=== PATIENT | female | born 1990 | race Caucasian/White ===

== ENCOUNTER 2018-01-14 10:38 | Emergency (ER) | payer OTHER ==
[~2018-01-14] VITALS: Ht 162.6 cm; Wt 43.8 kg
[2018-01-14] MEDS ORDERED: FLEXERIL10 MG PO (12:34)
[2018-01-14] MEDS ORDERED: NAPROSYN500 MG PO (12:34)
[2018-01-14 12:50] VITALS: BP 126/88
== END 2018-01-14 12:51 | disposition home or self-care (01) ==
LOC: EME 10:38
DX: M62.830 Muscle spasm of back (principal); M25.512 Pain in left shoulder; M54.6 Pain in thoracic spine; M54.2 Cervicalgia; F17.200 Nicotine dependence, unspecified, uncomplicated
CPT/HCPCS: 72040; 73030; 99281; 99284